=== PATIENT | male | born 1985 | race Caucasian/White ===

== ENCOUNTER 2022-04-20 18:16 | Emergency (ER) | payer MEDICAID, SELFPAY ==
[2022-04-20 18:17] VITALS: BP 136/87; PULSE 80; RESP 18; TEMP 36.6; O2SAT 100; BMI 20.3
--- NOTE | 2022-04-20 18:51 | EX.ED.UPPERE ---
HPI History of Present Illness Chief Complaint: Foreign Body Narrative Narrative: Patient presents with foreign body in his left arm. He states that he was attempting to try and inject fentanyl into his left arm. He was unable to inject because he thinks that the needle tip hit scar tissue, and broke. He was able to see a small portion of the needle. He was going to grab them with hemostats, but that it disappeared into his skin. He believes his tetanus immunization is up-to-date. He presents for foreign body removal. He also told the RN that he may want detox, but he states he changed his mind and has an appointment with a detox center tomorrow. Hence, he is declining detox currently. He states he is here for foreign body removal from his skin. [facility] Medical History Drug abuse Hepatitis B Hepatitis C Home Medications doxycycline monohydrate 100 mg capsule 100 mg PO BID #14 caps 04/20/22 [Rx Last Taken Unknown] Allergy/AdvReac Type Severity Reaction Status Date / Time No Known Allergies Allergy Verified 04/20/22 18:19 Social History Smoking Status: Current some day smoker tobacco type: cigars ROS ROS ED ROS Narrative Constitutional: No fever, no chills. HEENT: No sore throat. No neck pain. No loss of vision. No rhinorrhea. Cardiovascular: No chest pain. No palpitations. No pedal edema. Respiratory: No cough, no shortness of breath. Abdominal: No abdominal pain. No nausea. No vomiting. Genitourinary: No dysuria. No hematuria. Musculoskeletal: No myalgias. No arthralgias. Neurologic: No headaches. No dizziness. No lightheadedness. Skin: No rash. No change in color. Foreign body (he needle-tipped) left antecubital fossa Psychiatric: No depression. No anxiety. EXAM Physical Exam Narrative Exam Narrative: Afebrile. Vital signs noted. HEENT: Normocephalic. Atraumatic. PERRL, EOMI. Neck soft and supple. No point tenderness or step off. Cardiovascular: Regular rate and rhythm. No murmurs, rubs, or gallops appreciated. Respiratory: No tachypnea. Lungs clear to auscultation bilaterally. Gastrointestinal: Abdomen soft, nontender, with normoactive bowel sounds. No rebound or guarding. Neurological: Awake. Alert. Nonfocal, nonlateralizing. Skin: Diffuse lesions consistent with skin picking/rash. Normal color. No pallor. Positive scar tissue left antecubital fossa. No tenderness. No visible foreign body. Musculoskeletal: No pedal edema. Full range of motion extremities. Const Vital Signs: 04/20/22 18:17 Temperature 97.9 F Temperature Source Temporal Pulse Rate 80 Respiratory Rate 18 Blood Pressure 136/87 H Blood Pressure Mean 103 Pulse Ox 100 Oxygen Delivery Method Room Air MDM MDM MDM Narrative Medical decision making narrative: X-rays were obtained of the left elbow to look for foreign body in the skin. I reviewed the x-ray. The needle seems to be in the lateral aspect of the proximal forearm, not in the area in the antecubital fossa where the patient thought it was. It appears deep in the tissue. I do not feel that I would be able to remove it even by making a small incision in the skin. I will place the patient on antibiotics. He was given the first dose of doxycycline here and a prescription written for the next week. He was referred to general surgery and to orthopedics for follow-up for possible foreign body removal. Return instructions to the emergency department were reviewed. Disposition is discharged home in stable condition. Discharge Plan Triage Chief Complaint: Foreign Body ED Provider: Haider Jamison Dx/Rx/DC Orders Clinical Impression: Retained foreign body, Intravenous drug abuse Instructions: ED Drug Abuse, ED Foreign Body Soft Tissue Prescriptions: New doxycycline monohydrate 100 mg capsule 100 mg PO BID Qty: 14 0RF Primary Care Provider: Rama Montague Referrals: Rama Montague DO [Primary Care Provider] - Minh Sal DO [STAFF PHYSICIAN] - As soon as possible Kala Espinoza MD [STAFF PHYSICIAN] - As soon as possible Activity Restrictions/Additional Instructions: You have a retained foreign body in the soft tissue/skin of your left arm. Follow-up with general surgery or orthopedics as soon as possible. Take all the antibiotics. Disposition Disposition: Home, Self Care
--- NOTE | 2022-04-20 18:55 | RAD_ITS ---
STUDY: X-RAY - LEFT ELBOW REASON FOR EXAM: Male, 37 years old. Foreign Body Antecubital Fossa TECHNIQUE: 3 view(s) of the elbow. COMPARISON: None. FINDINGS: Please see the impression. RAD/Elbow min 3 Views IMPRESSION: An approximately 0.6 cm linear metallic foreign body in the lateral aspect of the antecubital fossa, likely a needle fragment. No acute fracture or dislocation in the left elbow. Electronically Signed: Yaron Harding MD at 19:37 EDT ,
[2022-04-20] MEDS: Doxycycline 100 MG CAPSULE PO (20:24)
[2022-04-20 20:31] VITALS: PULSE 66; RESP 16
== END 2022-04-20 20:32 | disposition home or self-care (01) ==
PROVIDERS: Emergency Provider Emergency Medicine; PCP Family Medicine; Visit Provider Emergency Medicine
DX: Z18.10 Retained metal fragments, unspecified (principal); F11.10 Opioid abuse, uncomplicated; F17.290 Nicotine dependence, other tobacco product, uncomplicated
CPT/HCPCS: 73080; 99283

== ENCOUNTER 2022-04-29 05:53 | Day surgery (SDC) | payer MEDICAID, SELFPAY ==
[2022-04-29] VITALS (7 sets, daily range): BP systolic 92–136; BP diastolic 56–80; PULSE 64–90; RESP 16–18; TEMP 36.3–37.7; O2SAT 95–100
[2022-04-29] MEDS: Lactated Ringers 1,000 ML 15 ML IV (06:10)
--- NOTE | 2022-04-29 06:30 | RAD_ITS ---
STUDY: X-RAY - LEFT ELBOW REASON FOR EXAM: Male, 37 years old. FB TECHNIQUE: 2 view(s) of the elbow. COMPARISON: Comparison is made with prior study dated 04/20/2022. FINDINGS: Intraoperative imaging provided for foreign body removal. RAD/Elbow 2 Views IMPRESSION: Intraoperative imaging provided for foreign body removal. Electronically Signed: Jose Knight MD at 12:46 EDT ,
[2022-04-29] MEDS: Cefazolin 2 GM in 0.9% Normal Saline 100 ML IV (07:37)
--- NOTE | 2022-04-29 08:43 | DCINST_ITS ---
Discharge Instructions Follow Up Care Test Results: Test results from this visit will be discussed in further detail at your follow- up appointment, if applicable. Discharge Plan Admission Primary Reason for Your Visit: Removal foreign body left elbow Attending Provider: Minh Sal Primary Care Provider: Rama Montague Instructions Additional Instructions / Restrictions: Follow preprinted instructions from your surgeons office. Discharge Orders/Prescriptions Prescriptions: New ibuprofen 800 mg tablet 800 mg PO Q8H PRN (Reason: pain) 5 Days Qty: 15 0RF Continued doxycycline monohydrate 100 mg capsule 100 mg PO BID Qty: 14 0RF Referrals / Follow Up: Rama Montague DO [Primary Care Provider] - Minh Sal DO [STAFF PHYSICIAN] - Within 2 Weeks Disposition Disposition (needs filled in before D/C Order can be placed): Home, Self Care
--- NOTE | 2022-04-29 08:44 | OP.PCM_ITS ---
Report of Operation Date of Procedure: 04/29/22 Description of Surgical Findings:: Preoperative diagnosis: Retained foreign body left elbow antecubital fossa Postoperative diagnosis: Retained foreign body left elbow antecubital fossa Procedure: Removal foreign body left elbow antecubital fossa Surgeon: Minh Sal DO Clinical Social Worker: Elke Hogan PA-C Anesthesia: General LMA Anesthesiologist: Dr. Cardenas Complications: None apparent Drains: None Estimated blood loss: 5 cc Urinary output: None measured IV fluids: 600 cc crystalloid Specimens: None Surgical implants: None Preoperative indications: This is a 37-year-old male IV drug user who was injecting fentanyl into his left antecubital fossa last week. Patient states he was walking during this and accidentally broke a needle off in the antecubital fossa. He was seen in the emergency department that day. X-rays confirmed retained metallic fragment consistent with a TB needle. Saw the patient in follow-up last week. We discussed nonoperative versus operative management. We reviewed the risk of infection and migration of the needle if left retained. He wished to have it removed. I discussed the risk, benefits, alternatives to the procedure. Risks included but were not limited to bleeding infection, loss of life or limb, need for additional surgery, neurovascular injury, DVT or PE, risk of anesthesia. Patient expressed understands risk was proceed with surgery. Description of procedure: Patient was identified in the preoperative holding area by name, medical record number, and date of . The operative extremity was marked. All questions were answered patient satisfaction. Informed consent was confirmed. At time of his procedure, patient brought the operative suite positioned supine a standard operating table. General anesthesia was induced and LMA placed. After securing the tube, we applied a well-padded left upper arm tourniquet. The arm was cleansed with a Betadine scrub. We then spun the bed 45 degrees. ChloraPrep was used to prep the upper extremity in a normal sterile orthopedic fashion. We then draped out the left upper extremity in standard fashion. We then performed a timeout with all parties in attendance in agreement the side, site, operation to be performed. No concerns were voiced and we elected proceed with surgery. 2 g Ancef was administered prior to anesthesia by anesthesia staff. I first brought in a mini C arm to seth the skin for the retained metallic foreign body. There is just adjacent to the palpable biceps tendon. Skin was marked. I then examined the left upper extremity and Esmarch bandage. Tourniquet was inflated 250 mmHg where remained up for approximately 30 minutes. Esmarch was removed. A longitudinal incision was carried sharply through skin and subcutaneous tissue of approximately 3 cm in the antecubital fossa. I bluntly dissected the subcutaneous tissue. There is a significant longitudinal stripe of scar just superficial to the fascia. I brought in the C arm to confirm the metallic fragment was in this polyp scar. I then sharply dissected through the scar with a 15 blade scalpel. Metallic needle was identified and retrieved. Fluoroscopy was brought in to confirm complete removal, which was confirmed. This was saved on the mini C arm. Deflated tourniquet. I copiously irrigated the wound with normal saline solution. There was no evidence of current infection. I proceeded with closure of this dermis with interrupted buried 3-0 Vicryl suture and skin was finally reapproximated with running subcuticular 4-0 Monocryl and skin glue. Prior to closure, a field block with 10 cc 0.5% bupivacaine was injected in the subc utaneous tissues. Patient tolerated procedure well without apparent complication. He was transferred to PACU in stable condition after being safely extubated in the operative suite. Need for skilled administrative office assistant: Elke Hogan PA-C was critical to the outcome of the case. During the course of the procedure the physician administrative office assistant played a vital role. Her intimate knowledge of my steps in the procedure aided in safe and expedient completion of the procedure. The PA played a vital role in positioning particularly in obtaining the appropriate positioning. The PA was also vital in the retraction of soft tissues during the exposure and protecting vital structures. She also played a vital role in closure with my direct supervision Post Operative Plan: Weightbearing: Range of motion as tolerated left upper extremity, no lifting greater than 5 pounds until follow-up Antibiotics: Ancef 2 g x 1 dose preoperatively DVT Prophylaxis: None indicated Merrill: None Dressing: Okay to shower on postoperative day #2. X-Rays: None Pain Medication: Ibuprofen 800 mg 3 times daily as needed for pain prescription sent to pharmacy Follow-up: 2 weeks post-operatively with me in the office.
[2022-04-29] MEDS: Bupivacaine Mpf 0.5% 30 ML VIAL (08:45)
== END 2022-04-29 10:25 | disposition home or self-care (01) ==
LOC: SDC 05:53 → AC 05:55
PROVIDERS: PCP Family Medicine; Referring Provider Student in an Organized Health Care Education/Training Program; Visit Provider Student in an Organized Health Care Education/Training Program
PROC: (CPT 20520; principal; 2022-04-29 07:20)
DX: S51.842A Puncture wound with foreign body of left forearm, initial encounter (principal); F11.10 Opioid abuse, uncomplicated; Z18.10 Retained metal fragments, unspecified; X58.XXXA Exposure to other specified factors, initial encounter; R03.0 Elevated blood-pressure reading, without diagnosis of hypertension; F32.A Depression, unspecified; Z87.891 Personal history of nicotine dependence
CPT/HCPCS: 20520; 73070; 76000; J7120; J2405